=== PATIENT | female | born 1965 | race Caucasian/White ===

== ENCOUNTER 2018-09-28 13:12 | Inpatient (IN) ==
[2018-09-29] MEDS ORDERED: DEXTROSE 50% 25 GM/50 ML SYRINGE IV PRN (09:09)
[2018-09-29] MEDS ORDERED: GLUCAGON 1 MG VIAL IM PRN ×2 (09:09→14:59)
[2018-09-29] MEDS ORDERED: ALBUTEROL/IPRATROPIUM 3 ML NEB RESP TX PRN (09:15)
[2018-09-29] MEDS: MAGNESIUM OXIDE 400 MG TABLET PO SCH ×2 (14:31→21:43)
[2018-09-29] MEDS: SODIUM CHLORIDE 0.9% 1,000 ML IV SCH (14:32)
[2018-09-29] MEDS ORDERED: DEXTROSE 50% 25 GM/50 ML VIAL IV PRN (14:59)
[2018-09-29] MEDS ORDERED: INSULIN ASPART SUBCUT PRN (21:22)
[2018-09-29] MEDS ORDERED: [UNRECOGNIZED DRUG - OTHER] SUBCUT PRN (21:22)
[2018-09-29] MEDS: INSULIN GLARGINE 100 UNIT/ML SUBCUT SCH (21:43)
[2018-09-29] MEDS: GABAPENTIN 400 MG CAPSULE PO SCH (21:43)
[2018-09-29] MEDS: CITALOPRAM 20 MG TABLET PO SCH (21:43)
[2018-09-29] MEDS: FLUTICASONE/SALMETEROL 100-50 DISKUS 14 DOSE INH SCH (21:43)
[2018-09-29] MEDS: CHLORHEXIDINE 0.12% ORAL RINSE 60 ML BOTTLE SWISH/SPIT SCH (21:44)
[2018-09-30 04:27] LABS: ABG Base Excess 4.5 MMOL/L (-2.5-2.5); ABG HCO3 30.1 MMOL/L (20-26); ABG Oxygen Saturation 95.7 % (95-100); ABG PCO2 48.5 MM HG (35-48); ABG TCO2 31.5 MMOL/L (23-27); Allen Test Positive
[2018-09-30 04:27] LABS: Basophils % 0.3 % (0.0-0.8); Eosinophils # 0.4 10*3/uL (0.0-0.87); Eosinophils % 3.9 % (0.00-10.9); Hematocrit 41.8 VOL% (35.7-47.0); Hemoglobin 12.6 GM/DL (12.0-16.0); Immature Granulocytes % 0.5 %; Immature Granulocytes Absolute 0.05 #; Lymphocytes # 2.2 10*3/uL (1.4-4.0); Lymphocytes % 21.2 % (21.3-54.2); Mean Corpuscular HGB Conc 30.1 GM/DL (32-36); Mean Corpuscular Hemoglobin 26 PG (27-34); Mean Corpuscular Volume 86.2 FL (87-102); Mean Platelet Volume 9.9 FL (9.6-12.0); Monocytes # 0.8 10*3/uL (0.11-0.8); Monocytes % 7.1 % (1.7-12.7); Neutrophils # 7.1 10*3/uL (1.4-7.4); Platelet Count 274 T/CUMM (130-400); Red Blood Count 4.85 MC/CUMM (3.8-5.5); Red Cell Distribution Width 15.7 % (9.3-17.3); White Blood Count 10.5 T/CUMM (4-12)
[2018-09-30 05:12] LABS: Albumin 3.3 G/DL (3.4-5.0); Bilirubin,Total 1.6 MG/DL (0.2-1.0); Calcium 9.1 MG/DL (8.5-10.1); Osmolality,Calculated 292.5 MOS/KG (273-304); Potassium 3.4 MMOL/L (3.5-5.1); Total Protein 6.9 G/DL (6.4-8.3)
[2018-09-30] MEDS ORDERED: CEFUROXIME INJ 1,500 MG in SYRINGE 1 EACH IV ONE (06:30)
[2018-09-30] MEDS ORDERED: NON-FORMULARY MEDICATION SUBCUT SCH (07:30)
[2018-09-30] MEDS: INSULIN GLARGINE 100 UNIT/ML SUBCUT SCH ×2 (08:54→22:03)
[2018-09-30] MEDS: CHLORHEXIDINE 0.12% ORAL RINSE 60 ML BOTTLE SWISH/SPIT SCH ×2 (08:55→21:53)
[2018-09-30] MEDS: GABAPENTIN 400 MG CAPSULE PO SCH ×2 (08:55→21:51)
[2018-09-30] MEDS: METOPROLOL SUCCINATE XL 25 MG TABLET PO SCH (08:56)
[2018-09-30] MEDS: ATORVASTATIN 20 MG TABLET PO SCH (08:56)
[2018-09-30] MEDS: MAGNESIUM OXIDE 400 MG TABLET PO SCH ×3 (08:56→21:52)
[2018-09-30] MEDS: LISINOPRIL 20 MG TABLET PO SCH (08:56)
[2018-09-30] MEDS: CHLORTHALIDONE 25 MG TABLET PO SCH (08:56)
[2018-09-30] MEDS: FLUTICASONE/SALMETEROL 100-50 DISKUS 14 DOSE INH SCH ×2 (08:56→21:52)
[2018-09-30] MEDS: CETIRIZINE 10 MG TABLET PO SCH (08:56)
[2018-09-30] MEDS: SODIUM CHLORIDE 0.9% 1,000 ML IV SCH (09:36)
[2018-09-30] MEDS: MOMETASONE 50 MCG NASAL SPRAY 17 GM BOTTLE BOTH NARES SCH (09:36)
[2018-09-30] MEDS: NON-FORMULARY MEDICATION SUBCUT SCH ×2 (10:25→10:26)
[2018-09-30] MEDS ORDERED: INSULIN ASPART SUBCUT SCH (11:30)
[2018-09-30] MEDS ORDERED: [UNRECOGNIZED DRUG - OTHER] SUBCUT SCH (11:30)
[2018-09-30] MEDS: INSULIN ASPART SUBCUT SCH ×2 (12:32→17:09)
[2018-09-30] MEDS: [UNRECOGNIZED DRUG - OTHER] SUBCUT SCH ×2 (12:32→17:09)
[2018-09-30] MEDS ORDERED: POTASSIUM CHLORIDE 20 MEQ TABLET PO ONE (12:44)
[2018-09-30] MEDS: CHLORHEXIDINE 4% SOLN 118 ML BOTTLE TOP SCH ×2 (14:54→21:52)
[2018-09-30] MEDS: CITALOPRAM 20 MG TABLET PO SCH (21:51)
[2018-09-30] MEDS: BYDUREON SUBCUT SCH ×2 (21:53→22:03)
[2018-10-01] MEDS ORDERED: PAPAVERINE 60 MG/2 ML VIAL ONE (05:08)
[2018-10-01] MEDS ORDERED: VANCOMYCIN 1,000 MG VIAL ONE ×2 (05:09→07:55)
[2018-10-01] MEDS: SODIUM CHLORIDE 0.9% 1,000 ML IV SCH ×2 (05:49→12:02)
[2018-10-01] MEDS ORDERED: MIDAZOLAM 10 MG/2 ML VIAL ONE (05:58)
[2018-10-01] MEDS ORDERED: SUFentanil 250 MCG/5 ML AMP ONE (05:58)
[2018-10-01] MEDS ORDERED: VANCOMYCIN INJ 1,000 MG in SODIUM CHLORIDE 0.9% 250 ML IV ONE (06:00)
[2018-10-01] MEDS ORDERED: FAMOTIDINE 20 MG TABLET PO ONE (06:00)
[2018-10-01] MEDS ORDERED: DIAZEPAM 5 MG TABLET PO ONE (06:00)
[2018-10-01] MEDS: INSULIN ASPART SUBCUT SCH ×2 (06:10→11:59)
[2018-10-01] MEDS: [UNRECOGNIZED DRUG - OTHER] SUBCUT SCH ×2 (06:10→11:59)
[2018-10-01 07:51] LABS: ABG Base Excess 3.4 MMOL/L (-2.5-2.5); ABG HCO3 27.4 MMOL/L (20-26); ABG PCO2 44.3 MM HG (35-48); ABG PH 7.415 (7.35-7.45); Glucose Heart Surgery 260 MG/DL (74-106); Hematocrit Heart Surgery 38.1 PERCENT (37-47); Hemoglobin Heart Surgery 12.4 G/DL (12.0-16.0); Ionized Calcium Arterial 1.16 MMOL/L (1.21-1.46); PCO2 Patient Temp Arterial 44.3 MMHG; PH Patient Temp Arterial 7.415; Patient Temperature 37 CELCIUS; Potassium Heart/CVR 3.5 MMOL/L (3.5-5.1); Sodium Heart/CVR 136 MMOL/L (135-145)
[2018-10-01 08:20] LABS: Apearance,Urine CLEAR (Clear); Bilirubin,Urine Negative (Negative); Blood, Urine Negative (Negative); Glucose,Urine (UA) >=500 mg/dL (Negative); Ketones,Urine 5 mg/dL (Negative); Mucus,Urine Occasional /LPF (Occasional); Nitrite,Urine Negative (Negative); Protein,Urine Negative; Squamous Epithelial Cell,Urine Occasional /HPF (0-10); Urine Color Yellow (Yellow); Urine Specific Gravity 1.032 (1.001-1.035); Urine Urobilinogen < 2.0 EU/DL (0.2-1.0); WBC,Urine <1 /HPF (0-6)
[2018-10-01] MEDS ORDERED: PHENYLEPHRINE DRIP 40 MG/250 ML PREMIX IV ONE (08:58)
[2018-10-01] MEDS ORDERED: POTASSIUM CHLORIDE RIDER 100 ML IV ONE (08:58)
[2018-10-01] MEDS ORDERED: ALBUMIN 5% 12.5 GM/250 ML VIAL IV ONE (08:58)
[2018-10-01] MEDS ORDERED: PHENYLEPHRINE DRIP 20 MG/250 ML PREMIX IV ONE (09:10)
[2018-10-01] MEDS ORDERED: HEPARIN/NACL 0.9% 2 UNITS/ML 500 ML IV ONE (09:10)
[2018-10-01] MEDS ORDERED: CALCIUM CHLORIDE 1,000 MG/10 ML VIAL IV ONE (09:10)
[2018-10-01] MEDS ORDERED: VECURONIUM 10 MG VIAL IV ONE ×2 (09:10→11:52)
[2018-10-01] MEDS ORDERED: NITROGLYCERIN DRIP 50 MG/250 ML BOTTLE IV ONE (09:11)
[2018-10-01] MEDS ORDERED: PHENYLEPHRINE 1 MG/10 ML SYRINGE IV ONE (09:11)
[2018-10-01] MEDS ORDERED: AMINOCAPROIC ACID 5,000 MG/20 ML VIAL ONE (09:11)
[2018-10-01] MEDS ORDERED: ETOMIDATE 40 MG/20 ML VIAL IV ONE (09:11)
[2018-10-01 09:14] LABS: Hematocrit Heart Surgery 28.3 PERCENT (37-47); Hemoglobin Heart Surgery 9.1 G/DL (12.0-16.0); PCO2 Patient Temp Venous 36.4 MM HG; PH Patient Temp Venous 7.49; PO2 Patient Temp Venous 33.5 MM HG; Potassium Heart/CVR 3.5 MMOL/L (3.5-5.1); VBG Base Excess 4.5 MEQ/L (0-4); VBG HCO3 28.1 MEQ/L (24-28); VBG Oxygen Saturation 79.6 %; VBG PCO2 42.1 MMHG (41-51); VBG PH 7.445; VBG PO2 41.3 MMHG (17-40)
[2018-10-01 09:47] LABS: Hemoglobin Heart Surgery 9.3 G/DL (12.0-16.0); PH Patient Temp Venous 7.502; PO2 Patient Temp Venous 36.5 MM HG; Potassium Heart/CVR 3.7 MMOL/L (3.5-5.1); VBG Base Excess 4.3 MEQ/L (0-4); VBG HCO3 28.1 MEQ/L (24-28); VBG Oxygen Saturation 81.2 %; VBG PCO2 38.6 MMHG (41-51); VBG PH 7.472
[2018-10-01] MEDS ORDERED: SODIUM BICARBONATE 50 MEQ/50 ML SYRINGE IV ONE (10:25)
[2018-10-01] MEDS ORDERED: PROTAMINE SULFATE 250 MG/25 ML VIAL IV ONE (10:25)
[2018-10-01] MEDS ORDERED: ALBUMIN 25% 25 GM/100 ML VIAL IV ONE (10:25)
[2018-10-01] MEDS ORDERED: DEXTROSE 5% KCL 20 MEQ 20 MEQ/1,000 ML BAG IV ONE (10:25)
[2018-10-01] MEDS ORDERED: MANNITOL 100 GM/500 ML BAG IV ONE (10:25)
[2018-10-01] MEDS ORDERED: PROTAMINE SULFATE 50 MG/5 ML VIAL IV ONE ×3 (10:26→12:32)
[2018-10-01] MEDS ORDERED: MAGNESIUM SULFATE 10 GM/20 ML VIAL IV ONE (10:26)
[2018-10-01] MEDS ORDERED: FUROSEMIDE 20 MG/2 ML VIAL ONE (10:26)
[2018-10-01] MEDS ORDERED: HEPARIN 10,000 UNIT/10 ML VIAL ONE (10:26)
[2018-10-01] MEDS ORDERED: methylPREDNISolone SOD SUC 1,000 MG/8 ML VIAL ONE (10:26)
[2018-10-01] MEDS ORDERED: POTASSIUM CHLORIDE 20 MEQ/10 ML VIAL ONE (10:26)
[2018-10-01 10:34] LABS: ABG Base Excess 2.5 MMOL/L (-2.5-2.5); ABG HCO3 26.3 MMOL/L (20-26); ABG Oxygen Saturation 98.9 % (95-100); ABG PCO2 37.7 MM HG (35-48); ABG PH 7.462 (7.35-7.45); ABG PO2 259.1 MM HG (80-95); ABG TCO2 27.5 MMOL/L (23-27); Glucose Heart Surgery 310 MG/DL (74-106); Hemoglobin Heart Surgery 10.6 G/DL (12.0-16.0); Ionized Calcium Arterial 1.18 MMOL/L (1.21-1.46); PCO2 Patient Temp Arterial 37.7 MMHG; PH Patient Temp Arterial 7.462; PO2 Patient Temp Arterial 259.1 MM HG; Patient Temperature 37 CELCIUS; Potassium Heart/CVR 3.8 MMOL/L (3.5-5.1); Sodium Heart/CVR 132 MMOL/L (135-145)
[2018-10-01] MEDS ORDERED: SODIUM CHLORIDE 0.45% 1,000 ML IV SCH ×2 (11:30)
[2018-10-01] MEDS ORDERED: ACETAMINOPHEN 650 MG SUPP RECTAL PRN (11:30)
[2018-10-01] MEDS ORDERED: MIDAZOLAM 10 MG/2 ML VIAL IV PRN (11:30)
[2018-10-01] MEDS ORDERED: CALCIUM CHLORIDE 1,000 MG/10 ML SYRINGE IV PRN (11:30)
[2018-10-01] MEDS ORDERED: INSULIN REGULAR 100 UNIT/ML IV ONE (11:30)
[2018-10-01] MEDS ORDERED: PHENYLEPHRINE DRIP 40 MG/250 ML PREMIX IV PRN (11:30)
[2018-10-01] MEDS ORDERED: MAGNESIUM SULF RIDER 4 GM in PREMIX 1 EACH IV PRN (11:30)
[2018-10-01] MEDS ORDERED: MIDAZOLAM 2 MG/2 ML VIAL IV PRN (11:30)
[2018-10-01] MEDS ORDERED: NITROPRUSSIDE 100 MG in DEXTROSE 5% 250 ML IV PRN (11:30)
[2018-10-01] MEDS ORDERED: DEXTROSE 50% 25 GM/50 ML SYRINGE IV PRN ×2 (11:30)
[2018-10-01] MEDS ORDERED: MAGNESIUM SULF RIDER 2 GM in PREMIX 1 EACH IV PRN (11:30)
[2018-10-01] MEDS ORDERED: MORPHINE 4 MG/1 ML VIAL IV PRN (11:30)
[2018-10-01] MEDS ORDERED: MORPHINE 10 MG/1 ML VIAL IV PRN (11:30)
[2018-10-01] MEDS ORDERED: VECURONIUM 10 MG VIAL IV PRN ×2 (11:30)
[2018-10-01] MEDS ORDERED: LACTATED RINGERS 250 ML IV PRN (11:30)
[2018-10-01] MEDS ORDERED: ONDANSETRON 4 MG/2 ML VIAL IV PRN (11:30)
[2018-10-01 11:39] LABS: Basophils % 0.2 % (0.0-0.8); Eosinophils # 0.2 10*3/uL (0.0-0.87); Eosinophils % 1.5 % (0.00-10.9); Hematocrit 35.4 VOL% (35.7-47.0); Immature Granulocytes % 0.9 %; Immature Granulocytes Absolute 0.12 #; Lymphocytes % 7.6 % (21.3-54.2); Mean Corpuscular HGB Conc 31.1 GM/DL (32-36); Mean Corpuscular Hemoglobin 27 PG (27-34); Mean Corpuscular Volume 85.9 FL (87-102); Mean Platelet Volume 9.9 FL (9.6-12.0); Monocytes # 0.5 10*3/uL (0.11-0.8); Monocytes % 3.8 % (1.7-12.7); Neutrophils # 11.4 10*3/uL (1.4-7.4); Platelet Count 273 T/CUMM (130-400); Red Blood Count 4.12 MC/CUMM (3.8-5.5); Red Cell Distribution Width 15.5 % (9.3-17.3); White Blood Count 13.3 T/CUMM (4-12)
[2018-10-01 11:40] LABS: ABG Base Excess 1.7 MMOL/L (-2.5-2.5); ABG Oxygen Saturation 99.3 % (95-100); ABG PCO2 45.9 MM HG (35-48); ABG PH 7.382 (7.35-7.45); ABG TCO2 24.4 MMOL/L (23-27); Glucose Heart Surgery 323 MG/DL (74-106); Hemoglobin Heart Surgery 11.3 G/DL (12.0-16.0); Potassium Heart/CVR 3.8 MMOL/L (3.5-5.1)
[2018-10-01 11:48] LABS: PT Patient Result 10.7 SECS; Partial Thromboplastin Time 25.6 SECS (0-40)
[2018-10-01] MEDS ORDERED: SODIUM CHLORIDE 0.9% 250 ML IV ONE (11:52)
[2018-10-01] MEDS ORDERED: SODIUM CHLORIDE 0.9% 1,000 ML IV ONE (11:52)
[2018-10-01] MEDS ORDERED: LACTATED RINGERS 1,000 ML IV ONE (11:52)
[2018-10-01] MEDS ORDERED: SEVOFLURANE 1 UNIT/15 MINUTE INH ONE (11:52)
[2018-10-01] MEDS ORDERED: SODIUM CHLORIDE 0.9% 100 ML IV ONE (11:52)
[2018-10-01] MEDS: CHLORHEXIDINE 4% SOLN 118 ML BOTTLE TOP SCH (11:58)
[2018-10-01] MEDS: FLUTICASONE/SALMETEROL 100-50 DISKUS 14 DOSE INH SCH (11:59)
[2018-10-01] MEDS: CHLORTHALIDONE 25 MG TABLET PO SCH (12:00)
[2018-10-01] MEDS: MAGNESIUM OXIDE 400 MG TABLET PO SCH (12:00)
[2018-10-01] MEDS: MOMETASONE 50 MCG NASAL SPRAY 17 GM BOTTLE BOTH NARES SCH (12:00)
[2018-10-01] MEDS: ATORVASTATIN 20 MG TABLET PO SCH (12:00)
[2018-10-01] MEDS: LACTATED RINGERS 1,000 ML IV PRN ×2 (12:00→16:14)
[2018-10-01] MEDS: INSULIN GLARGINE 100 UNIT/ML SUBCUT SCH (12:00)
[2018-10-01] MEDS: LISINOPRIL 20 MG TABLET PO SCH (12:01)
[2018-10-01] MEDS: CHLORHEXIDINE 0.12% ORAL RINSE 60 ML BOTTLE SWISH/SPIT SCH ×2 (12:01→21:00)
[2018-10-01] MEDS: GABAPENTIN 400 MG CAPSULE PO SCH (12:01)
[2018-10-01] MEDS: METOPROLOL SUCCINATE XL 25 MG TABLET PO SCH (12:01)
[2018-10-01] MEDS: CETIRIZINE 10 MG TABLET PO SCH (12:01)
[2018-10-01 12:06] LABS: Albumin 2.8 G/DL (3.4-5.0); Bilirubin,Total 1.4 MG/DL (0.2-1.0); Calcium 8.3 MG/DL (8.5-10.1); Osmolality,Calculated 289.7 MOS/KG (273-304); Potassium 3.9 MMOL/L (3.5-5.1); Total Protein 5.6 G/DL (6.4-8.3)
[2018-10-01 12:09] LABS: CKMB % 6.3 %
[2018-10-01] MEDS: POTASSIUM CHLORIDE RIDER 20 MEQ in PREMIX 1 EACH IV PRN ×4 (12:10→22:35)
[2018-10-01 12:13] LABS: Troponin I 2.04 NG/ML (0.00-0.045)
[2018-10-01] MEDS: INSULIN REGULAR DRIP 100 ML IV SCH ×2 (12:13→19:30)
[2018-10-01] MEDS: KETOROLAC 30 MG/1 ML VIAL IV SCH ×2 (12:20→18:18)
[2018-10-01] MEDS: POTASSIUM CHLORIDE RIDER 10 MEQ in PREMIX 1 EACH IV PRN ×3 (12:58→23:41)
[2018-10-01 13:13] LABS: ABG Base Excess -3.5 MMOL/L (-2.5-2.5); ABG HCO3 21.7 MMOL/L (20-26); ABG Oxygen Saturation 97.6 % (95-100); ABG PCO2 39.7 MM HG (35-48); ABG PH 7.355 (7.35-7.45); ABG PO2 93.5 MM HG (80-95); ABG TCO2 22.9 MMOL/L (23-27); Glucose Heart Surgery 89 MG/DL (74-106); Hemoglobin Heart Surgery 13.3 G/DL (12.0-16.0); Potassium Heart/CVR 4.9 MMOL/L (3.5-5.1)
[2018-10-01] MEDS: ALBUMIN 5% 12.5 GM in PREMIX 1 EACH IV PRN ×2 (13:23→18:16)
[2018-10-01 16:14] LABS: ABG HCO3 23.5 MMOL/L (20-26); ABG Oxygen Saturation 97.9 % (95-100); ABG PH 7.313 (7.35-7.45); ABG TCO2 23.3 MMOL/L (23-27); Glucose Heart Surgery 342 MG/DL (74-106); Hematocrit Heart Surgery 35.9 PERCENT (37-47); Hemoglobin Heart Surgery 11.6 G/DL (12.0-16.0)
[2018-10-01] MEDS: INSULIN REGULAR 100 UNIT/ML IV PRN ×2 (16:29→18:11)
[2018-10-01 17:11] LABS: ABG Base Excess -0.2 MMOL/L (-2.5-2.5); ABG HCO3 24.2 MMOL/L (20-26); ABG Oxygen Saturation 97.8 % (95-100); ABG PCO2 49.4 MM HG (35-48); ABG PH 7.333 (7.35-7.45); ABG TCO2 23.6 MMOL/L (23-27); Glucose Heart Surgery 325 MG/DL (74-106); Hematocrit Heart Surgery 35.4 PERCENT (37-47); Hemoglobin Heart Surgery 11.5 G/DL (12.0-16.0); Potassium Heart/CVR 3.7 MMOL/L (3.5-5.1)
[2018-10-01] MEDS ORDERED: FUROSEMIDE 40 MG/4 ML VIAL IV ONE (18:23)
[2018-10-01 19:21] LABS: ABG Base Excess 0.8 MMOL/L (-2.5-2.5); ABG HCO3 25.1 MMOL/L (20-26); ABG Oxygen Saturation 97.2 % (95-100); ABG PCO2 51.8 MM HG (35-48); ABG PH 7.333 (7.35-7.45); ABG TCO2 24.8 MMOL/L (23-27); Glucose Heart Surgery 280 MG/DL (74-106); Hematocrit Heart Surgery 34.5 PERCENT (37-47); Hemoglobin Heart Surgery 11.2 G/DL (12.0-16.0); Potassium Heart/CVR 3.9 MMOL/L (3.5-5.1)
[2018-10-01] MEDS ORDERED: AMIODARONE INJ 150 MG in DEXTROSE 5% 100 ML IV ONE (21:39)
[2018-10-01] MEDS ORDERED: AMIODARONE INJ 450 MG in DEXTROSE 5% 241 ML IV SCH (22:00)
[2018-10-01 22:16] LABS: CKMB % 2.9 %
[2018-10-01 22:20] LABS: Troponin I 1.99 NG/ML (0.00-0.045)
[2018-10-01 22:23] LABS: ABG Base Excess 1.2 MMOL/L (-2.5-2.5); ABG HCO3 25.4 MMOL/L (20-26); ABG Oxygen Saturation 96.7 % (95-100); ABG PCO2 49.4 MM HG (35-48); ABG PH 7.352 (7.35-7.45); ABG PO2 91.1 MM HG (80-95); ABG TCO2 24.7 MMOL/L (23-27); Glucose Heart Surgery 191 MG/DL (74-106); Potassium Heart/CVR 3.9 MMOL/L (3.5-5.1)
[2018-10-01] MEDS ORDERED: VANCOMYCIN INJ 1,000 MG in SODIUM CHLORIDE 0.9% 250 ML IV SCH (23:19)
[2018-10-02] MEDS: INSULIN REGULAR DRIP 100 ML IV SCH (00:52)
[2018-10-02] MEDS ORDERED: FUROSEMIDE 40 MG/4 ML VIAL ONE (01:00)
[2018-10-02] MEDS: KETOROLAC 30 MG/1 ML VIAL IV SCH ×5 (01:02→23:53)
[2018-10-02] MEDS ORDERED: FUROSEMIDE 40 MG/4 ML VIAL IV ONE (02:00)
[2018-10-02] MEDS ORDERED: AMIODARONE INJ 450 MG in DEXTROSE 5% 241 ML IV SCH (04:00)
[2018-10-02 04:14] LABS: ABG Base Excess 1.9 MMOL/L (-2.5-2.5); ABG HCO3 27.6 MMOL/L (20-26); ABG Oxygen Saturation 96.7 % (95-100); ABG PCO2 47.8 MM HG (35-48); ABG PH 7.379 (7.35-7.45); ABG PO2 91.8 MM HG (80-95); Glucose Heart Surgery 126 MG/DL (74-106); Hemoglobin Heart Surgery 11.6 G/DL (12.0-16.0); Potassium Heart/CVR 4.1 MMOL/L (3.5-5.1)
[2018-10-02 04:15] LABS: Basophils % 0.1 % (0.0-0.8); Eosinophils % 0.1 % (0.00-10.9); Hematocrit 34.9 VOL% (35.7-47.0); Hemoglobin 10.6 GM/DL (12.0-16.0); Immature Granulocytes % 0.6 %; Immature Granulocytes Absolute 0.09 #; Lymphocytes # 0.8 10*3/uL (1.4-4.0); Lymphocytes % 5.4 % (21.3-54.2); Mean Corpuscular HGB Conc 30.4 GM/DL (32-36); Mean Corpuscular Hemoglobin 27 PG (27-34); Mean Corpuscular Volume 87.3 FL (87-102); Mean Platelet Volume 9.7 FL (9.6-12.0); Monocytes # 0.7 10*3/uL (0.11-0.8); Monocytes % 4.8 % (1.7-12.7); Neutrophils # 13.6 10*3/uL (1.4-7.4); Platelet Count 256 T/CUMM (130-400); Red Cell Distribution Width 15.7 % (9.3-17.3); White Blood Count 15.3 T/CUMM (4-12)
[2018-10-02 04:35] LABS: Albumin 3.2 G/DL (3.4-5.0); Bilirubin,Direct 0.1 MG/DL (0.0-0.20); Bilirubin,Total 0.4 MG/DL (0.2-1.0); Calcium 8.7 MG/DL (8.5-10.1); Osmolality,Calculated 285.4 MOS/KG (273-304); Potassium 4.1 MMOL/L (3.5-5.1); Total Protein 6.1 G/DL (6.4-8.3)
[2018-10-02 04:48] LABS: Troponin I 3.15 NG/ML (0.00-0.045)
[2018-10-02] MEDS: POTASSIUM CHLORIDE RIDER 20 MEQ in PREMIX 1 EACH IV PRN (04:53)
[2018-10-02] MEDS ORDERED: MAGNESIUM SULF RIDER 2 GM in PREMIX 1 EACH IV PRN (09:14)
[2018-10-02] MEDS ORDERED: DEXTROSE 50% 25 GM/50 ML VIAL IV PRN ×2 (09:14→12:51)
[2018-10-02] MEDS ORDERED: ACETAMINOPHEN 325 MG TABLET PO PRN (09:14)
[2018-10-02] MEDS ORDERED: GLUCAGON 1 MG VIAL IM PRN ×2 (09:14)
[2018-10-02] MEDS ORDERED: DEXTROSE 50% 25 GM/50 ML SYRINGE IV PRN (09:14)
[2018-10-02] MEDS ORDERED: ALUMINUM/MAGNES/SIMETH MAX STR 30 ML UDCUP PO PRN (09:14)
[2018-10-02] MEDS ORDERED: MAGNESIUM HYDROXIDE SUSP 30 ML UDCUP PO PRN (09:14)
[2018-10-02] MEDS ORDERED: SODIUM CHLOR 0.45% KCL 20 MEQ 20 MEQ/1,000 ML BAG IV SCH (09:14)
[2018-10-02] MEDS ORDERED: ONDANSETRON 4 MG/2 ML VIAL IV PRN (09:14)
[2018-10-02] MEDS ORDERED: MAGNESIUM SULF RIDER 4 GM in PREMIX 1 EACH IV PRN (09:14)
[2018-10-02] MEDS: METOPROLOL SUCCINATE XL 50 MG TABLET PO SCH (10:19)
[2018-10-02] MEDS: AMIODARONE 200 MG TABLET PO SCH ×2 (10:19→20:51)
[2018-10-02] MEDS: CHLORTHALIDONE 25 MG TABLET PO SCH (10:20)
[2018-10-02] MEDS: DOCUSATE SODIUM 100 MG CAPSULE PO SCH (10:20)
[2018-10-02] MEDS: FERROUS SULFATE 325 MG TABLET PO SCH (10:20)
[2018-10-02] MEDS: GABAPENTIN 400 MG CAPSULE PO SCH ×2 (10:20→20:51)
[2018-10-02] MEDS: PANTOPRAZOLE 40 MG TABLET PO SCH (10:20)
[2018-10-02] MEDS: CHLORHEXIDINE 0.12% ORAL RINSE 60 ML BOTTLE SWISH/SPIT SCH ×3 (10:21→20:52)
[2018-10-02] MEDS: MAGNESIUM OXIDE 400 MG TABLET PO SCH ×3 (10:21→20:52)
[2018-10-02] MEDS: METOPROLOL SUCCINATE XL 25 MG TABLET PO SCH (10:21)
[2018-10-02] MEDS: INSULIN GLARGINE 100 UNIT/ML SUBCUT SCH ×2 (10:22→20:52)
[2018-10-02] MEDS: ASPIRIN EC 81 MG TABLET PO SCH (10:23)
[2018-10-02] MEDS: INSULIN REGULAR 100 UNIT/ML SUBCUT SCH ×3 (13:33→20:52)
[2018-10-02] MEDS: SYNJARDY PO SCH (13:34)
[2018-10-02] MEDS: EXENATIDE MICROSPHERES 2 MG SQ SCH (13:34)
[2018-10-02] MEDS: LISINOPRIL 20 MG TABLET PO SCH (17:45)
[2018-10-02] MEDS: ATORVASTATIN 20 MG TABLET PO SCH (20:51)
[2018-10-03 04:44] LABS: Basophils % 0.3 % (0.0-0.8); Eosinophils % 0.3 % (0.00-10.9); Hematocrit 35.5 VOL% (35.7-47.0); Hemoglobin 10.6 GM/DL (12.0-16.0); Immature Granulocytes % 0.4 %; Immature Granulocytes Absolute 0.05 #; Lymphocytes # 2.5 10*3/uL (1.4-4.0); Lymphocytes % 22.4 % (21.3-54.2); Mean Corpuscular HGB Conc 29.9 GM/DL (32-36); Mean Corpuscular Hemoglobin 26 PG (27-34); Mean Corpuscular Volume 88.1 FL (87-102); Mean Platelet Volume 10.5 FL (9.6-12.0); Monocytes # 1.1 10*3/uL (0.11-0.8); Monocytes % 9.3 % (1.7-12.7); Neutrophils # 7.6 10*3/uL (1.4-7.4); Neutrophils % 67.3 % (38.7-73.9); Platelet Count 258 T/CUMM (130-400); Red Blood Count 4.03 MC/CUMM (3.8-5.5); Red Cell Distribution Width 15.9 % (9.3-17.3); White Blood Count 11.3 T/CUMM (4-12)
[2018-10-03 05:01] LABS: Alanine Aminotransferase 28 U/L (13-56); Albumin 2.6 G/DL (3.4-5.0); Alkaline Phosphatase 63 U/L (45-117); Aspartate Amino Transferase 32 U/L (0-37); Bilirubin,Direct < 0.100 MG/DL (0.0-0.20); Bilirubin,Indirect 0.7 MG/DL (0.0-1.0); Blood Urea Nitrogen 42 MG/DL (7-18); CKMB % 0.9 %; Calcium 8.1 MG/DL (8.5-10.1); Glucose 340 MG/DL (74-106); Osmolality,Calculated 300.5 MOS/KG (273-304); Potassium 4.6 MMOL/L (3.5-5.1); Sodium 139 MMOL/L (136-145)
[2018-10-03] MEDS: KETOROLAC 30 MG/1 ML VIAL IV SCH ×4 (05:31→23:00)
[2018-10-03] MEDS ORDERED: FUROSEMIDE 40 MG/4 ML VIAL IV ONE (06:00)
[2018-10-03] MEDS: METOPROLOL SUCCINATE XL 25 MG TABLET PO SCH (09:01)
[2018-10-03] MEDS: MAGNESIUM OXIDE 400 MG TABLET PO SCH ×3 (09:01→21:34)
[2018-10-03] MEDS: CHLORTHALIDONE 25 MG TABLET PO SCH (09:01)
[2018-10-03] MEDS: DOCUSATE SODIUM 100 MG CAPSULE PO SCH (09:01)
[2018-10-03] MEDS: ASPIRIN EC 81 MG TABLET PO SCH (09:01)
[2018-10-03] MEDS: PANTOPRAZOLE 40 MG TABLET PO SCH (09:01)
[2018-10-03] MEDS: FERROUS SULFATE 325 MG TABLET PO SCH (09:01)
[2018-10-03] MEDS: METOPROLOL SUCCINATE XL 50 MG TABLET PO SCH (09:01)
[2018-10-03] MEDS: AMIODARONE 200 MG TABLET PO SCH ×2 (09:02→21:33)
[2018-10-03] MEDS: INSULIN GLARGINE 100 UNIT/ML SUBCUT SCH ×2 (09:02→21:34)
[2018-10-03] MEDS: GABAPENTIN 400 MG CAPSULE PO SCH ×2 (09:02→21:33)
[2018-10-03] MEDS: INSULIN REGULAR 100 UNIT/ML SUBCUT SCH ×2 (09:02→12:58)
[2018-10-03] MEDS: CHLORHEXIDINE 0.12% ORAL RINSE 60 ML BOTTLE SWISH/SPIT SCH ×2 (09:07→21:35)
[2018-10-03] MEDS: EXENATIDE MICROSPHERES 2 MG SQ SCH (16:23)
[2018-10-03] MEDS: INSULIN LISPRO 100 UNIT/ML SUBCUT SCH ×2 (16:23→21:34)
[2018-10-03] MEDS: SYNJARDY PO SCH ×2 (16:23→21:35)
[2018-10-03] MEDS: LISINOPRIL 20 MG TABLET PO SCH (17:45)
[2018-10-03] MEDS: ATORVASTATIN 20 MG TABLET PO SCH (21:33)
[2018-10-03] MEDS: ZALEPLON 5 MG CAPSULE PO PRN (22:58)
[2018-10-04 05:15] LABS: Basophils % 0.3 % (0.0-0.8); Eosinophils # 0.3 10*3/uL (0.0-0.87); Eosinophils % 2.8 % (0.00-10.9); Hematocrit 35.2 VOL% (35.7-47.0); Hemoglobin 10.6 GM/DL (12.0-16.0); Immature Granulocytes % 0.4 %; Immature Granulocytes Absolute 0.04 #; Lymphocytes # 2.5 10*3/uL (1.4-4.0); Lymphocytes % 25.3 % (21.3-54.2); Mean Corpuscular HGB Conc 30.1 GM/DL (32-36); Mean Corpuscular Hemoglobin 26 PG (27-34); Mean Corpuscular Volume 86.9 FL (87-102); Mean Platelet Volume 10.1 FL (9.6-12.0); Monocytes # 0.9 10*3/uL (0.11-0.8); Neutrophils # 6.2 10*3/uL (1.4-7.4); Neutrophils % 62.2 % (38.7-73.9); Platelet Count 260 T/CUMM (130-400); Red Blood Count 4.05 MC/CUMM (3.8-5.5); Red Cell Distribution Width 15.3 % (9.3-17.3)
[2018-10-04 05:46] LABS: Alanine Aminotransferase 26 U/L (13-56); Albumin 2.7 G/DL (3.4-5.0); Alkaline Phosphatase 65 U/L (45-117); Aspartate Amino Transferase 25 U/L (0-37); Bilirubin,Direct < 0.100 MG/DL (0.0-0.20); Bilirubin,Indirect 0.8 MG/DL (0.0-1.0); Blood Urea Nitrogen 34 MG/DL (7-18); Calcium 8.3 MG/DL (8.5-10.1); Glucose 122 MG/DL (74-106); Osmolality,Calculated 291.1 MOS/KG (273-304); Potassium 3.8 MMOL/L (3.5-5.1); Sodium 142 MMOL/L (136-145); Total Protein 5.9 G/DL (6.4-8.3)
[2018-10-04] MEDS: KETOROLAC 30 MG/1 ML VIAL IV SCH (06:10)
[2018-10-04] MEDS: SYNJARDY PO SCH ×2 (08:11→21:45)
[2018-10-04] MEDS: INSULIN LISPRO 100 UNIT/ML SUBCUT SCH ×4 (08:13→21:42)
[2018-10-04] MEDS: INSULIN GLARGINE 100 UNIT/ML SUBCUT SCH ×2 (08:13→21:43)
[2018-10-04] MEDS: AMIODARONE 200 MG TABLET PO SCH ×2 (08:51→21:43)
[2018-10-04] MEDS: FERROUS SULFATE 325 MG TABLET PO SCH (08:51)
[2018-10-04] MEDS: METOPROLOL SUCCINATE XL 50 MG TABLET PO SCH (08:51)
[2018-10-04] MEDS: PANTOPRAZOLE 40 MG TABLET PO SCH (08:51)
[2018-10-04] MEDS: MAGNESIUM OXIDE 400 MG TABLET PO SCH ×3 (08:51→21:43)
[2018-10-04] MEDS: ASPIRIN EC 81 MG TABLET PO SCH (08:51)
[2018-10-04] MEDS: METOPROLOL SUCCINATE XL 25 MG TABLET PO SCH (08:51)
[2018-10-04] MEDS: DOCUSATE SODIUM 100 MG CAPSULE PO SCH (08:51)
[2018-10-04] MEDS: GABAPENTIN 400 MG CAPSULE PO SCH ×2 (08:51→21:42)
[2018-10-04] MEDS: CHLORTHALIDONE 25 MG TABLET PO SCH (08:51)
[2018-10-04] MEDS: CHLORHEXIDINE 0.12% ORAL RINSE 60 ML BOTTLE SWISH/SPIT SCH ×2 (08:53→21:53)
[2018-10-04] MEDS: oxyCODONE/ACETAMINOPHEN 5-325 MG TABLET PO PRN ×2 (11:04→21:42)
[2018-10-04] MEDS: LISINOPRIL 20 MG TABLET PO SCH (18:23)
[2018-10-04] MEDS: ATORVASTATIN 20 MG TABLET PO SCH (21:43)
[2018-10-05] MEDS: oxyCODONE/ACETAMINOPHEN 5-325 MG TABLET PO PRN ×4 (00:45→20:56)
[2018-10-05] MEDS: DOCUSATE SODIUM 100 MG CAPSULE PO SCH (09:15)
[2018-10-05] MEDS: ASPIRIN EC 81 MG TABLET PO SCH (09:15)
[2018-10-05] MEDS: INSULIN LISPRO 100 UNIT/ML SUBCUT SCH ×4 (09:15→23:27)
[2018-10-05] MEDS: AMIODARONE 200 MG TABLET PO SCH ×2 (09:16→20:57)
[2018-10-05] MEDS: FERROUS SULFATE 325 MG TABLET PO SCH (09:16)
[2018-10-05] MEDS: SYNJARDY PO SCH ×2 (09:16→20:57)
[2018-10-05] MEDS: CHLORTHALIDONE 25 MG TABLET PO SCH (09:16)
[2018-10-05] MEDS: INSULIN GLARGINE 100 UNIT/ML SUBCUT SCH ×3 (09:16→23:28)
[2018-10-05] MEDS: GABAPENTIN 400 MG CAPSULE PO SCH ×2 (09:17→20:56)
[2018-10-05] MEDS: PANTOPRAZOLE 40 MG TABLET PO SCH (09:17)
[2018-10-05] MEDS: CHLORHEXIDINE 0.12% ORAL RINSE 60 ML BOTTLE SWISH/SPIT SCH ×2 (09:17→20:56)
[2018-10-05] MEDS: MAGNESIUM OXIDE 400 MG TABLET PO SCH ×3 (09:17→20:56)
[2018-10-05] MEDS: METOPROLOL SUCCINATE XL 50 MG TABLET PO SCH (09:18)
[2018-10-05] MEDS: METOPROLOL SUCCINATE XL 25 MG TABLET PO SCH (09:18)
[2018-10-05] MEDS: LISINOPRIL 20 MG TABLET PO SCH (17:16)
[2018-10-05] MEDS: ATORVASTATIN 20 MG TABLET PO SCH (20:56)
[2018-10-06] MEDS: oxyCODONE/ACETAMINOPHEN 5-325 MG TABLET PO PRN ×4 (02:25→20:27)
[2018-10-06 05:52] LABS: Basophils % 0.2 % (0.0-0.8); Eosinophils # 0.2 10*3/uL (0.0-0.87); Eosinophils % 2.8 % (0.00-10.9); Hematocrit 34.6 VOL% (35.7-47.0); Hemoglobin 10.6 GM/DL (12.0-16.0); Immature Granulocytes % 0.4 %; Immature Granulocytes Absolute 0.03 #; Lymphocytes # 1.9 10*3/uL (1.4-4.0); Mean Corpuscular HGB Conc 30.6 GM/DL (32-36); Mean Corpuscular Hemoglobin 27 PG (27-34); Mean Corpuscular Volume 86.7 FL (87-102); Mean Platelet Volume 9.8 FL (9.6-12.0); Monocytes # 0.6 10*3/uL (0.11-0.8); Monocytes % 6.8 % (1.7-12.7); Neutrophils # 5.5 10*3/uL (1.4-7.4); Neutrophils % 66.8 % (38.7-73.9); Platelet Count 312 T/CUMM (130-400); Red Blood Count 3.99 MC/CUMM (3.8-5.5); Red Cell Distribution Width 15.2 % (9.3-17.3); White Blood Count 8.2 T/CUMM (4-12)
[2018-10-06 06:24] LABS: Alanine Aminotransferase 21 U/L (13-56); Albumin 2.3 G/DL (3.4-5.0); Alkaline Phosphatase 61 U/L (45-117); Aspartate Amino Transferase 11 U/L (0-37); Bilirubin,Direct < 0.100 MG/DL (0.0-0.20); Bilirubin,Indirect 0.3 MG/DL (0.0-1.0); Blood Urea Nitrogen 16 MG/DL (7-18); Calcium 8.4 MG/DL (8.5-10.1); Glucose 166 MG/DL (74-106); Osmolality,Calculated 285.3 MOS/KG (273-304); Potassium 3.7 MMOL/L (3.5-5.1); Sodium 141 MMOL/L (136-145); Total Protein 5.7 G/DL (6.4-8.3)
[2018-10-06 06:25] LABS: Troponin I 0.374 NG/ML (0.00-0.045)
[2018-10-06] MEDS: GABAPENTIN 400 MG CAPSULE PO SCH ×2 (08:57→20:27)
[2018-10-06] MEDS: DOCUSATE SODIUM 100 MG CAPSULE PO SCH (08:57)
[2018-10-06] MEDS: PANTOPRAZOLE 40 MG TABLET PO SCH (08:57)
[2018-10-06] MEDS: POTASSIUM CHLORIDE 20 MEQ TABLET PO PRN ×2 (08:57→10:41)
[2018-10-06] MEDS: MAGNESIUM OXIDE 400 MG TABLET PO SCH ×3 (08:57→20:27)
[2018-10-06] MEDS: AMIODARONE 200 MG TABLET PO SCH ×2 (08:58→20:29)
[2018-10-06] MEDS: METOPROLOL SUCCINATE XL 25 MG TABLET PO SCH (08:58)
[2018-10-06] MEDS: CHLORTHALIDONE 25 MG TABLET PO SCH (08:58)
[2018-10-06] MEDS: ASPIRIN EC 81 MG TABLET PO SCH (08:58)
[2018-10-06] MEDS: SYNJARDY PO SCH ×2 (08:59→20:29)
[2018-10-06] MEDS: INSULIN GLARGINE 100 UNIT/ML SUBCUT SCH (08:59)
[2018-10-06] MEDS: CHLORHEXIDINE 0.12% ORAL RINSE 60 ML BOTTLE SWISH/SPIT SCH ×2 (09:00→20:31)
[2018-10-06] MEDS: FERROUS SULFATE 325 MG TABLET PO SCH (09:00)
[2018-10-06] MEDS: INSULIN LISPRO 100 UNIT/ML SUBCUT SCH ×4 (09:01→20:26)
[2018-10-06] MEDS: METOPROLOL SUCCINATE XL 50 MG TABLET PO SCH (09:05)
[2018-10-06] MEDS: LISINOPRIL 20 MG TABLET PO SCH (18:37)
[2018-10-06] MEDS: ZALEPLON 5 MG CAPSULE PO PRN (20:27)
[2018-10-06] MEDS: ATORVASTATIN 20 MG TABLET PO SCH (20:27)
[2018-10-07] MEDS: oxyCODONE/ACETAMINOPHEN 5-325 MG TABLET PO PRN ×4 (02:24→18:10)
[2018-10-07 04:17] LABS: Basophils % 0.3 % (0.0-0.8); Eosinophils # 0.3 10*3/uL (0.0-0.87); Hematocrit 34.9 VOL% (35.7-47.0); Hemoglobin 10.3 GM/DL (12.0-16.0); Immature Granulocytes % 0.6 %; Immature Granulocytes Absolute 0.05 #; Lymphocytes % 23.5 % (21.3-54.2); Mean Corpuscular HGB Conc 29.5 GM/DL (32-36); Mean Corpuscular Hemoglobin 26 PG (27-34); Mean Platelet Volume 9.8 FL (9.6-12.0); Monocytes # 0.7 10*3/uL (0.11-0.8); Monocytes % 7.6 % (1.7-12.7); Neutrophils # 5.7 10*3/uL (1.4-7.4); Platelet Count 293 T/CUMM (130-400); Red Blood Count 3.92 MC/CUMM (3.8-5.5); Red Cell Distribution Width 15.5 % (9.3-17.3); White Blood Count 8.7 T/CUMM (4-12)
[2018-10-07 04:36] LABS: Alanine Aminotransferase 19 U/L (13-56); Albumin 2.4 G/DL (3.4-5.0); Alkaline Phosphatase 63 U/L (45-117); Aspartate Amino Transferase 12 U/L (0-37); Bilirubin,Direct < 0.100 MG/DL (0.0-0.20); Bilirubin,Indirect 0.3 MG/DL (0.0-1.0); Bilirubin,Total < 0.39 MG/DL (0.2-1.0); Blood Urea Nitrogen 15 MG/DL (7-18); Calcium 8.7 MG/DL (8.5-10.1); Glucose 184 MG/DL (74-106); Osmolality,Calculated 284.4 MOS/KG (273-304); Potassium 3.8 MMOL/L (3.5-5.1); Sodium 140 MMOL/L (136-145); Total Protein 5.9 G/DL (6.4-8.3); Troponin I 0.222 NG/ML (0.00-0.045)
[2018-10-07] MEDS: INSULIN GLARGINE 100 UNIT/ML SUBCUT SCH ×2 (05:23→09:17)
[2018-10-07] MEDS: INSULIN LISPRO 100 UNIT/ML SUBCUT SCH ×4 (09:17→21:58)
[2018-10-07] MEDS: SYNJARDY PO SCH ×2 (09:18→21:58)
[2018-10-07] MEDS: ASPIRIN EC 81 MG TABLET PO SCH (09:18)
[2018-10-07] MEDS: METOPROLOL SUCCINATE XL 50 MG TABLET PO SCH (09:18)
[2018-10-07] MEDS: METOPROLOL SUCCINATE XL 25 MG TABLET PO SCH (09:19)
[2018-10-07] MEDS: CHLORHEXIDINE 0.12% ORAL RINSE 60 ML BOTTLE SWISH/SPIT SCH ×2 (09:19→21:59)
[2018-10-07] MEDS: PANTOPRAZOLE 40 MG TABLET PO SCH (09:19)
[2018-10-07] MEDS: MAGNESIUM OXIDE 400 MG TABLET PO SCH ×3 (09:19→21:58)
[2018-10-07] MEDS: FERROUS SULFATE 325 MG TABLET PO SCH (09:19)
[2018-10-07] MEDS: DOCUSATE SODIUM 100 MG CAPSULE PO SCH (09:19)
[2018-10-07] MEDS: CHLORTHALIDONE 25 MG TABLET PO SCH (09:19)
[2018-10-07] MEDS: GABAPENTIN 400 MG CAPSULE PO SCH ×2 (09:19→21:58)
[2018-10-07] MEDS: AMIODARONE 200 MG TABLET PO SCH ×2 (09:19→21:58)
[2018-10-07] MEDS: LISINOPRIL 20 MG TABLET PO SCH (18:52)
[2018-10-07] MEDS: ATORVASTATIN 20 MG TABLET PO SCH (21:58)
[2018-10-07] MEDS: ZALEPLON 5 MG CAPSULE PO PRN (21:58)
[2018-10-08] MEDS: oxyCODONE/ACETAMINOPHEN 5-325 MG TABLET PO PRN ×3 (00:35→22:01)
[2018-10-08] MEDS: DOCUSATE SODIUM 100 MG CAPSULE PO SCH (08:13)
[2018-10-08] MEDS: AMIODARONE 200 MG TABLET PO SCH ×2 (08:13→21:55)
[2018-10-08] MEDS: MAGNESIUM OXIDE 400 MG TABLET PO SCH ×3 (08:13→21:59)
[2018-10-08] MEDS: METOPROLOL SUCCINATE XL 50 MG TABLET PO SCH (08:13)
[2018-10-08] MEDS: GABAPENTIN 400 MG CAPSULE PO SCH ×2 (08:13→21:54)
[2018-10-08] MEDS: METOPROLOL SUCCINATE XL 25 MG TABLET PO SCH (08:13)
[2018-10-08] MEDS: INSULIN GLARGINE 100 UNIT/ML SUBCUT SCH ×2 (08:14→21:55)
[2018-10-08] MEDS: INSULIN LISPRO 100 UNIT/ML SUBCUT SCH ×4 (08:14→21:55)
[2018-10-08] MEDS: CHLORHEXIDINE 0.12% ORAL RINSE 60 ML BOTTLE SWISH/SPIT SCH ×2 (08:14→21:55)
[2018-10-08] MEDS: CHLORTHALIDONE 25 MG TABLET PO SCH (08:14)
[2018-10-08] MEDS: ASPIRIN EC 81 MG TABLET PO SCH (08:14)
[2018-10-08] MEDS: PANTOPRAZOLE 40 MG TABLET PO SCH (08:14)
[2018-10-08] MEDS: FERROUS SULFATE 325 MG TABLET PO SCH (08:17)
[2018-10-08] MEDS: SYNJARDY PO SCH ×2 (08:24→21:54)
[2018-10-08] MEDS: LISINOPRIL 20 MG TABLET PO SCH (18:30)
[2018-10-08] MEDS: ZALEPLON 5 MG CAPSULE PO PRN (21:54)
[2018-10-08] MEDS: ATORVASTATIN 20 MG TABLET PO SCH (21:54)
[2018-10-09] MEDS: oxyCODONE/ACETAMINOPHEN 5-325 MG TABLET PO PRN ×2 (07:53→20:46)
[2018-10-09] MEDS: INSULIN LISPRO 100 UNIT/ML SUBCUT SCH ×4 (08:04→20:46)
[2018-10-09] MEDS: SYNJARDY PO SCH ×2 (08:24→20:45)
[2018-10-09] MEDS: DOCUSATE SODIUM 100 MG CAPSULE PO SCH (08:25)
[2018-10-09] MEDS: METOPROLOL SUCCINATE XL 25 MG TABLET PO SCH (08:25)
[2018-10-09] MEDS: PANTOPRAZOLE 40 MG TABLET PO SCH (08:25)
[2018-10-09] MEDS: GABAPENTIN 400 MG CAPSULE PO SCH ×2 (08:25→20:45)
[2018-10-09] MEDS: FERROUS SULFATE 325 MG TABLET PO SCH (08:25)
[2018-10-09] MEDS: AMIODARONE 200 MG TABLET PO SCH ×2 (08:25→20:45)
[2018-10-09] MEDS: MAGNESIUM OXIDE 400 MG TABLET PO SCH ×3 (08:25→20:45)
[2018-10-09] MEDS: ASPIRIN EC 81 MG TABLET PO SCH (08:25)
[2018-10-09] MEDS: METOPROLOL SUCCINATE XL 50 MG TABLET PO SCH (08:25)
[2018-10-09] MEDS: CHLORTHALIDONE 25 MG TABLET PO SCH (08:25)
[2018-10-09] MEDS: INSULIN GLARGINE 100 UNIT/ML SUBCUT SCH ×2 (08:26→20:45)
[2018-10-09] MEDS: EXENATIDE MICROSPHERES 2 MG SQ SCH (08:31)
[2018-10-09] MEDS: CHLORHEXIDINE 0.12% ORAL RINSE 60 ML BOTTLE SWISH/SPIT SCH ×2 (08:31→20:46)
[2018-10-09] MEDS: LISINOPRIL 20 MG TABLET PO SCH (17:15)
[2018-10-09] MEDS: ATORVASTATIN 20 MG TABLET PO SCH (20:45)
[2018-10-09] MEDS: ZALEPLON 5 MG CAPSULE PO PRN (20:45)
[2018-10-10] MEDS: SYNJARDY PO SCH (09:06)
[2018-10-10] MEDS: CHLORTHALIDONE 25 MG TABLET PO SCH (09:06)
[2018-10-10] MEDS: INSULIN GLARGINE 100 UNIT/ML SUBCUT SCH (09:06)
[2018-10-10] MEDS: METOPROLOL SUCCINATE XL 25 MG TABLET PO SCH (09:07)
[2018-10-10] MEDS: METOPROLOL SUCCINATE XL 50 MG TABLET PO SCH (09:07)
[2018-10-10] MEDS: GABAPENTIN 400 MG CAPSULE PO SCH (09:07)
[2018-10-10] MEDS: FERROUS SULFATE 325 MG TABLET PO SCH (09:08)
[2018-10-10] MEDS: ASPIRIN EC 81 MG TABLET PO SCH (09:08)
[2018-10-10] MEDS: MAGNESIUM OXIDE 400 MG TABLET PO SCH ×2 (09:08→14:33)
[2018-10-10] MEDS: oxyCODONE/ACETAMINOPHEN 5-325 MG TABLET PO PRN (09:09)
[2018-10-10] MEDS: AMIODARONE 200 MG TABLET PO SCH (09:09)
[2018-10-10] MEDS: PANTOPRAZOLE 40 MG TABLET PO SCH (09:09)
[2018-10-10] MEDS: CHLORHEXIDINE 0.12% ORAL RINSE 60 ML BOTTLE SWISH/SPIT SCH (09:11)
[2018-10-10] MEDS: DOCUSATE SODIUM 100 MG CAPSULE PO SCH (09:11)
[2018-10-10] MEDS: INSULIN LISPRO 100 UNIT/ML SUBCUT SCH ×2 (09:13→12:16)
[2018-10-10 11:45] VITALS: BP 102/54
== END 2018-10-10 15:30 | disposition home health service (06) | DRG 166 ==
LOC: N.TELEN 09-29 12:46 → N.CVR 10-01 08:11 → N.ICU 10-02 09:49 → N.TELES 10-02 13:12